=== PATIENT | female | born 1995 | race American Indian/Alaskan Native ===

== ENCOUNTER 2017-05-19 23:39 | Outpatient (CLI) | payer OTHER ==
[2017-05-20 00:16] LABS: Basophils % (Auto) 0.3 % (0.0-1.8); Hematocrit 36.4 % (30.3-42.9); Hemoglobin 12.1 gm/dl (10.1-14.3); Mean Corpuscular HGB Conc 33 % (30-34); Mean Corpuscular Hemoglobin 29 pg (28-32); Mean Corpuscular Volume 88 fl (79-97); Platelet Count 246 K/mm3 (140-440); Red Blood Count 4.15 M/mm3 (3.65-5.03); Red Cell Distribution Width 13.3 % (13.2-15.2); White Blood Count 8.1 K/mm3 (4.5-11.0)
[2017-05-20 00:34] LABS: Anion Gap 21 mmol/L; Blood Urea Nitrogen 9 mg/dL (7-17); Carbon Dioxide 20 mmol/L (22-30); Chloride 99.9 mmol/L (98-107); Glucose 93 mg/dL (65-100); Potassium 4.2 mmol/L (3.6-5.0); Sodium 137 mmol/L (137-145)
[2017-05-20 04:39] LABS: Bilirubin,Urine NEG (Negative); Blood,Urine NEG (Negative); Ketones,Urine NEG (Negative); Leukocyte Esterase,Urine LG (Negative); Mucus,Urine FEW /HPF; Nitrite,Urine NEG (Negative); Protein,Urine <15 mg/dL mg/dL (Negative); Urobilinogen,Urine < 2.0 mg/dL (<2.0)
--- NOTE | 2017-05-20 09:04 | Emergency Department Report ---
ED Chest Pain HPI - General Chief Complaint: Chest Pain Stated Complaint: 21WEEKS SPOTTING, CHEST PAIN Time Seen by Provider: 05/20/17 08:55 Source: patient Mode of arrival: Ambulatory Limitations: No Limitations - History of Present Illness Initial Comments: 19 weeks female 21 weeks presented today with chest pain and epigastric pain started 3 days ago aching in nature and comes and goes. Patient denied any shortness of breath no nausea no vomiting no fever no cough. MD Complaint: chest pain -: Gradual, days(s) (3 days) Onset: during rest Severity scale (0 -10): 5 - Related Data Allergies Allergy/AdvReac Type Severity Reaction Status Date / Time No Known Allergies Allergy Unverified 05/19/17 23:48 Heart Score - HEART Score History: Slightly suspicious EKG: Non-specific Age: < 45 Risk factors: No known risk factors Troponin: < normal limit HEART Score: 1 - Critical Actions Critical Actions: 0-3 pts:0.9-1.7%risk of adverse cardiac event.Candidate for discharge ED Review of Systems ROS: Stated complaint: 21WEEKS SPOTTING, CHEST PAIN Other details as noted in HPI Comment: All other systems reviewed and negative Constitutional: denies: chills, fever Respiratory: denies: cough, orthopnea, SOB with exertion Cardiovascular: chest pain. denies: palpitations, dyspnea on exertion Gastrointestinal: denies: abdominal pain, nausea, vomiting Genitourinary: other (vaginal spotting for the last 2-3 days) Skin: denies: lesions Neurological: denies: headache, weakness ED Past Medical Hx - Past Medical History Previous Medical History?: No - Surgical History Past Surgical History?: No - Social History Smoking Status: Never Smoker Substance Use Type: None ED Physical Exam - General Limitations: No Limitations General appearance: alert, in no apparent distress - Head Head exam: Present: normocephalic - ENT ENT exam: Present: normal exam - Neck Neck exam: Present: normal inspection - Respiratory Respiratory exam: Present: normal lung sounds bilaterally. Absent: respiratory distress, wheezes, rales, rhonchi, chest wall tenderness, accessory muscle use, decreased breath sounds, prolonged expiratory - Cardiovascular Cardiovascular Exam: Present: regular rate, normal rhythm, normal heart sounds - GI/Abdominal GI/Abdominal exam: Present: soft, normal bowel sounds, other (gravid uterus). Absent: distended, tenderness, guarding, rebound, rigid, mass, bruit - Back Exam Back exam: Absent: CVA tenderness (R), CVA tenderness (L) - Neurological Exam Neurological exam: Present: alert, oriented X3, CN II-XII intact - Skin Skin exam: Present: warm, normal color ED Course Vital Signs 05/19/17 05/20/17 05/20/17 23:48 02:55 07:12 Temperature 98.3 F 98.4 F Pulse Rate 85 92 H 80 Respiratory 18 18 18 Rate Blood Pressure 99/54 106/69 Blood Pressure 95/64 [Left] O2 Sat by Pulse 100 100 100 Oximetry 05/20/17 07:19 Temperature Pulse Rate Respiratory 16 Rate Blood Pressure Blood Pressure [Left] O2 Sat by Pulse Oximetry - Reevaluation(s) Reevaluation #1: 05/20/17 09:[address] Guerra from OB. She requested ultrasound pelvic and accepted the patient to be transferred to the labor and delivery for further evaluation. Reevaluation #2: 05/20/17 10:29 PATIENT WILL BE DISCHARGED TO GO TO LABOR AND DELIVERY. ED Medical Decision Making - Lab Data Result diagrams: 05/19/17 23:57 05/19/17 23:57 Critical care attestation.: If time is entered above; I have spent that time in minutes in the direct care of this critically ill patient, excluding procedure time. ED Disposition Clinical Impression: Chest pain, Vaginal bleeding before 22 weeks gestation Disposition: DC-01 TO HOME OR SELFCARE Is pt being admited?: No Condition: Stable Instructions: Chest Pain (ED) Additional Instructions: REPORT TO L&D TO SEE DR GUERRA. Referrals: PRIMARY CARE, [Primary Care Provider] - 3-5 Days
--- NOTE | 2017-05-20 10:26 | Ultrasound Report ---
Gestation: Single Position: Cephalic Placenta: Anterior Placental Grade: 0 Heart Rate: 160 BPM Cervical length: 3.2 cm (Normal > 3 cm) NEUROANATOMY VISUALIZED: Normal Choroid Plexus Cisterna Magnum Cerebellum Lateral Ventricle ANATOMY VISUALIZED: Normal Stomach Kidneys Bladder Diaphragm 4 Chamber Heart Heart 3 Vessel Cord Abd. Cord Insert SPINE VISUALIZED: Normal Longitudinal Transverse AP Limited spine due to position. BPD: 4.9 cm = 20 w 6 d HC: 18.5 cm = 20 w 6 d AC: 15.2 cm = 20 w 3 d FL: 3.5 cm = 21 w 0 d HC/AC Ratio: 1.2 Cephalic Index: 80.2 Estimated Weight: 371 grams LMP: 12/18/16 Clinical age = 21 w 6 d EDC: 09/24/17 US Gest. Age = 20 w 6 d EDC: 10/01/17
[2017-05-20] MEDS ORDERED: LACTATED RINGERS 500 ML IV ONE (11:15)
[2017-05-20 11:31] VITALS: BP 100/56
== END 2017-05-20 13:53 | disposition home or self-care (01) ==
LOC: TRG 23:39 → ED 23:39 → TRG 05-20 10:50 → ED 05-20 10:50 → TRG 05-20 11:10
PROVIDERS: ATTEND Obstetrics & Gynecology
DX: O26.852 Spotting complicating pregnancy, second trimester (principal); O26.892 Other specified pregnancy related conditions, second trimester; R07.9 Chest pain, unspecified; R10.13 Epigastric pain; R94.31 Abnormal electrocardiogram [ECG] [EKG]; Z3A.21 21 weeks gestation of pregnancy
CPT/HCPCS: 36415; 76805; 80048; 81001; 81025; 84484; 84702; 85025; 87591; 93005; 93010

== ENCOUNTER 2017-09-13 20:12 | Inpatient (IN) | payer OTHER ==
[2017-09-13] MEDS ORDERED: SUBLIMAZE IV PRN (22:21)
[2017-09-13] MEDS ORDERED: STADOL IV PRN (22:21)
[2017-09-13] MEDS ORDERED: CERVIDIL VG ONE (22:21)
[2017-09-13 22:38] LABS: Hematocrit 34.6 % (30.3-42.9); Hemoglobin 11.9 gm/dl (10.1-14.3); Mean Corpuscular HGB Conc 34 % (30-34); Mean Corpuscular Hemoglobin 31 pg (28-32); Mean Corpuscular Volume 89 fl (79-97); Red Blood Count 3.89 M/mm3 (3.65-5.03); Red Cell Distribution Width 13.6 % (13.2-15.2)
[2017-09-13 22:41] LABS: Platelet Count 148 K/mm3 (140-440)
[2017-09-13] MEDS ORDERED: LACTATED RINGERS 1,000 ML IV SCH (23:00)
--- NOTE | 2017-09-14 08:01 | History and Physical Report ---
History of Present Illness Date of examination: 09/14/17 Date of admission: 09/13/17 20:12 History of present illness: 21 yo LMP EDC 09/24/17 @ 38.4 weeks gestation arrived to L&D for induction of labor secondary to IUGR 3%. Received cervidil last night. Removed this am and was found to be 3cm. Second trimester entry into care at 14 weeks. course complicated by vaginal spotting with +CT, treated and negative DENNY. Comang't by [facility]. Last EFM 5-3oz on 09/08/17. She is GBS positive. Past History Past Medical History: no pertinent history Past Surgical History: no surgical history [employer] History: chlamydia Family/Genetic History: cancer Social history: no significant social history, single, lives with family ( mother and siblings) - Obstetrical History Expected Date of Delivery: 09/24/17 Actual Gestation: 38 Week(s) 4 Day(s) : 2 Para: 0 Hx # Term Pregnancies: 0 Induced : 0 Number of Living Children: 0 Medications and Allergies Allergies Allergy/AdvReac Type Severity Reaction Status Date / Time No Known Allergies Allergy Unverified 05/19/17 23:48 Active Meds: Active Medications Butorphanol Tartrate (Stadol) 2 mg IV Q2H PRN PRN Reason: Pain , Severe (7-10) Fentanyl (Sublimaze) 100 mcg IV Q2H PRN PRN Reason: Labor Pain Lactated Ringer's (Lactated Ringers) 1,000 mls @ 125 mls/hr IV DIRECT FE Review of Systems All systems: negative Genitourinary: normal appearance, leakage of fluid (AROM-clear), contractions - Vital Signs Vital signs: Vital Signs Pulse BP 97 H 100/55 09/13/17 20:45 09/13/17 20:45 Temp Pulse Resp BP Pulse Ox 98.4 F 93 H 28 H 124/75 09/14/17 07:25 09/14/17 07:30 09/14/17 07:25 09/14/17 07:30 - Physical Exam Breasts: Positive: deferred Genitourinary (Female): Positive: normal external genitalia, normal perenium. Negative: perineal/vulvar lesions Vagina: Positive: normal moisture - Obstetrical FHR: category 1, category 2 Uterine Contraction Monitor Mode: External Cervical Dilatation: 3 Cervical Effacement Percentage: 60 station: -2 Uterine Contraction Pattern: Regular Uterine Tone Measurement Phase: Resting Uterine Contraction Intensity: Strong/Firm Results Result Diagrams: 09/13/17 21:55 All other labs normal. Assessment and Plan A: IUP at 38.4 week gestation Latent Labor +GBS Induction for IUGR P: Ampicillin Pitocin prn
[2017-09-14] MEDS ORDERED: BRETHINE SUB-Q PRN (08:30)
[2017-09-14] MEDS ORDERED: ePHEDrine SULFATE IV PRN ×2 (08:30→12:45)
[2017-09-14] MEDS ORDERED: XYLOCAINE 2% INFILTRATI NR (08:30)
[2017-09-14] MEDS ORDERED: BRETHINE IVP PRN (08:30)
[2017-09-14] MEDS ORDERED: PITOCin/NS 30 UNIT/500ML 30 UNITS/500 ML BAG IV SCH ×2 (09:00)
[2017-09-14] MEDS ORDERED: PITOCin/NS 20 UNIT/1000ML DRIP 20 UNITS/1,000 ML BAG IV SCH (09:00)
[2017-09-14] MEDS ORDERED: POLYCILLIN/NS 2 GM/100 ML 2 GM/100 ML BAG IV ONE (09:00)
[2017-09-14] MEDS ORDERED: MINERAL OIL PO PRN (09:00)
[2017-09-14] MEDS: LACTATED RINGERS 1,000 ML IV SCH ×2 (09:10→11:58)
[2017-09-14] MEDS ORDERED: NARCAN 2 MG/2 ML IV PRN (11:52)
--- NOTE | 2017-09-14 11:53 | Anesthesia Consultation ---
Anesthesia Consult and Med Hx Date of service: 09/14/17 - Airway Anesthetic Teeth Evaluation: Good ROM Head & Neck: Adequate Mental/Hyoid Distance: Adequate Mallampati Class: Class II Intubation Access Assessment: Probably Good - Pulmonary Exam CTA: Yes - Cardiac Exam Cardiac Exam: RRR - Pre-Operative Health Status ASA Pre-Surgery Classification: ASA2 Proposed Anesthetic Plan: Epidural, Spinal - Pulmonary Hx Asthma: No COPD: No Hx Pneumonia: No - Cardiovascular System Hx Hypertension: No - Central Nervous System Hx Seizures: No Hx Psychiatric Problems: No - Endocrine Hx Renal Disease: No Hx End Stage Renal Disease: No Hx Hypothyroidism: No Hx Hyperthyroidism: No - Hematic Hx Anemia: No Hx Sickle Cell Disease: No - Additional Comments Anesthesia Medical History Comments: +IUP
[2017-09-14] MEDS ORDERED: fentaNYL-BUPIV 2 MCG/ML-0.125% 200 MCG/100 ML BAG EPIDURAL SCH (13:00)
[2017-09-14] MEDS ORDERED: POLYCILLIN/NS 1 GM/50 ML 1 GM/50 ML BAG IV SCH (13:00)
--- NOTE | 2017-09-14 13:19 | Event Note ---
Date: 09/14/17 S: No c/o O: FHT:Category 1 UC: 2-5 SVE: C/C/+2 A: Second stage labor GBS positive: Adequate treatment P: Active Donnie't
--- NOTE | 2017-09-14 13:19 | Procedure Note ---
OB Delivery Note - Delivery Date of Delivery: 09/14/17 (5-11oz male @ 1349) Surgeon: EUNICE BOYLE Estimated blood loss: 100cc - Vaginal Delivery presentation: vertex Delivery position: OA Intrapartum events: none Delivery induction: cervidil Delivery augmentation: rupture of membranes Delivery monitor: external FHT, external uterine Route of delivery: Delivery placenta: spontaneous (Sent to pathology) Delivery cord: 3 umbilical vessels Delivery laceration: 1st degree (vaginal, approximated with 3.[address], one stitch) Anesthesia: epidural - A at 1 minute: 9 at 5 minutes: 9 Infant Gender: Male (Pushed x 2 contractions for viable male in OA position. Spont. lusty cry, placed skin to skin. Apgars 9/9. Cord blood collected. Spont. placenta. Pitocin infusing. Bleeding scant. FF 3 below U, ML. +GBS, adequate treatment.)
[2017-09-14] MEDS ORDERED: TYLENOL PO PRN (14:04)
[2017-09-14] MEDS ORDERED: PHENERGAN PO PRN (14:04)
[2017-09-14] MEDS ORDERED: DULCOLAX PR PRN (14:04)
[2017-09-14] MEDS ORDERED: PHENERGAN PR PRN (14:04)
[2017-09-14] MEDS ORDERED: TUCKS PAD TP PRN (14:04)
[2017-09-14] MEDS ORDERED: BENADRYL PO PRN (14:04)
[2017-09-14] MEDS ORDERED: LANSINOH TP PRN (14:04)
[2017-09-14] MEDS ORDERED: SODIUM CHLORIDE FLUSH SYRINGE 10 ML IV SCH (15:00)
[2017-09-14] MEDS: MOTRIN PO SCH ×2 (16:00→23:58)
[2017-09-14] MEDS: NORCO 5/325 PO PRN (18:40)
[2017-09-15 02:01] LABS: Hematocrit 35.2 % (30.3-42.9); Hemoglobin 11.8 gm/dl (10.1-14.3)
[2017-09-15] MEDS: MOTRIN PO SCH ×5 (05:50→23:09)
[2017-09-15] MEDS ORDERED: BOOSTRIX IM ONE (06:00)
[2017-09-15] MEDS: NORCO 5/325 PO PRN (08:00)
[2017-09-15] MEDS ORDERED: FIORICET PO PRN (08:30)
--- NOTE | 2017-09-15 08:31 | Progress Note ---
Assessment and Plan A: PPD#1 s/p at term P: Routine care. Anticipate Discharge tomorrow. Subjective - Subjective Date of service: 09/15/17 Principal diagnosis: s/p at term Interval history: No overnight events. Patient reports: appetite normal, voiding normally, pain well controlled, ambulating normally, no nauseated : doing well Objective - Vital Signs Latest vital signs: Vital Signs Temp Pulse Resp BP BP Pulse Ox 09/15/17 05:50 20 09/15/17 00:30 98.0 F 85 18 105/68 09/14/17 23:58 18 09/14/17 20:55 98.3 F 82 18 102/61 09/14/17 17:45 98.1 F 96 H 18 116/64 09/14/17 14:34 107 H 100 09/14/17 14:29 105 H 99 09/14/17 14:24 116 H 100 09/14/17 14:22 117 H 116/72 09/14/17 14:19 104 H 100 09/14/17 14:14 117 H 100 09/14/17 14:07 111 H 124/73 09/14/17 13:52 90 106/63 09/14/17 13:47 100 H 100/66 09/14/17 13:30 98 H 100 09/14/17 13:25 94 H 100 09/14/17 13:20 106 H 100 09/14/17 13:15 113 H 100 09/14/17 13:10 98 H 100 09/14/17 13:05 88 100 09/14/17 13:00 105 H 100 09/14/17 12:53 103 H 117/79 09/14/17 12:16 93 H 110/61 09/14/17 12:10 86 107/65 09/14/17 11:49 101 H 99/50 09/14/17 10:48 90 92/49 09/14/17 09:48 122 H 135/75 09/14/17 09:15 113 H 134/72 Intake and Output 09/14/17 09/15/17 09/15/17 22:59 06:59 14:59 Intake Total 360 360 Output Total 900 400 Balance -540 -40 Intake: Oral 360 360 Output: Urine 900 400 Void 900 400 Other: Total, Intake Amount 240 120 Total, Output Amount 900 400 # Voids Void 1 - Exam Breasts: Present: deferred Cardiovascular: Present: Regular rate Lungs: Present: Clear to auscultation Abdomen: Present: soft Uterus: Present: fundal height below umbilicus Extremities: Present: normal
--- NOTE | 2017-09-15 08:32 | Discharge Summary ---
Providers - Providers Date of Admission: 09/13/17 20:12 Date of discharge: 09/16/17 Attending physician: JASON MALDONADO MD Primary care physician: JASON MALDONADO MD Hospitalization Reason for admission: induction of labor Delivery: Procedure details: Please see delivery note. Episiotomy: none Laceration: 1st degree Other procedures: none complications: none Discharge diagnosis: IUP at term delivered baby: male Hospital course: Pt underwent induction of labor and had a spontaneous vaginal delivery which she tolerated well. She had an unremarkable course and met discharge criteria on PPD#2. She will follow up in 4 wks with Chelsea Musa. Condition at discharge: Stable Disposition: - TO HOME OR SELFCARE - Discharge Diagnoses (1) Term of male Status: Acute (2) IUGR (intrauterine growth restriction) Status: Acute Plan - Discharge Medications Prescriptions: Ferrous Sulfate [Feosol 325 MG tab] 325 mg PO BID #60 tablet HYDROcodone/APAP 5-325 [Morgan 5/325] 1 each PO Q6HR PRN #20 tablet PRN Reason: Pain Ibuprofen [Motrin] 800 mg PO Q8HR PRN #30 tablet PRN Reason: Pain - Provider Discharge Summary Activity: routine, no sex for 6 weeks, no heavy lifting 4 weeks, no strenuous exercise Diet: routine Instructions: routine Additional instructions: [] Smoking cessation referral if applicable(refer to patient education folder for contact #) [] Refer to [facility]'s [facility] Booklet Call your doctor immediately for: * Fever > 100.5 * Heavy vaginal bleeding ( >1 pad per hour) * Severe persistent headache * Shortness of breath * Reddened, hot, painful area to leg or breast * Drainage or odor from incision. * Keep incision clean and dry at all times and follow doctor's instructions regarding bathing/showering PLEASE SCHEDULE YOUR SON'S CIRCUMCISION BEFORE HE IS ONE MONTH OLD - Follow up plan Follow up: CHELSEA MUSA CNM [Advanced Practice Nurse] - 10/12/17 (please call for exam )
[2017-09-15] MEDS: PRENATAL VITAMIN PO SCH (12:29)
[2017-09-15] MEDS ORDERED: M-M-R II VACCINE SUB-Q ONE (14:04)
[2017-09-16] MEDS: MOTRIN PO SCH ×2 (06:15→11:44)
[2017-09-16] MEDS: PRENATAL VITAMIN PO SCH (10:29)
[2017-09-16] MEDS: NORCO 5/325 PO PRN (11:49)
[2017-09-16 19:28] VITALS: BP 107/65
== END 2017-09-16 18:10 | disposition home or self-care (01) | DRG 775 ==
LOC: LD 20:12 → OB 09-14 17:17
PROVIDERS: ADMIT Obstetrics & Gynecology; ATTEND Obstetrics & Gynecology
PROC: 10E0XZZ Delivery of Products of Conception, External Approach (ICD-10-PCS; principal; 2017-09-14)
PROC: 0HQ9XZZ Repair Perineum Skin, External Approach (ICD-10-PCS; 2017-09-14)
PROC: 3E0P7VZ Introduction of Hormone into Female Reproductive, Via Natural or Artificial Opening (ICD-10-PCS; 2017-09-14)
PROC: 3E0R3BZ Introduction of Anesthetic Agent into Spinal Canal, Percutaneous Approach (ICD-10-PCS; 2017-09-14)
PROC: 00HU33Z Insertion of Infusion Device into Spinal Canal, Percutaneous Approach (ICD-10-PCS; 2017-09-14)
PROC: 10907ZC Drainage of Amniotic Fluid, Therapeutic from Products of Conception, Via Natural or Artificial Opening (ICD-10-PCS; 2017-09-14)
PROC: 3E0234Z Introduction of Serum, Toxoid and Vaccine into Muscle, Percutaneous Approach (ICD-10-PCS; 2017-09-15)
DX: O36.5930 Maternal care for other known or suspected poor fetal growth, third trimester, not applicable or unspecified (principal); O70.0 First degree perineal laceration during delivery; O99.824 Streptococcus B carrier state complicating childbirth; O26.893 Other specified pregnancy related conditions, third trimester; Z3A.38 38 weeks gestation of pregnancy; Z37.0 Single live birth; Z80.9 Family history of malignant neoplasm, unspecified; Z23 Encounter for immunization
CPT/HCPCS: 36415; 59200; 85014; 85018; 85027; 86592; 86850; 86900; 86901; 99211; A6250; G0463; J0290; J0595; J2590; J7120

== ENCOUNTER 2017-09-20 11:57 | Day surgery (SDC) | payer OTHER ==
[2017-09-20 12:34] VITALS: BP 120/78
--- NOTE | 2017-09-20 14:18 | Progress Note ---
Subjective Date of service: 09/20/17 Interval history: Ms Milligan had on 09/17/17 with combined spinal epidural analgesia. There was a documented wet tap and patient presents today with positional headache. After being presented with options of therapy the patient opted for epidural blood patch. She was placed in a sitting position and her back was prepped and draped. A 18 gauge epidural needle was inserted at L3-4, the area documented as site of the prior epidural. Good loss of resistance was obtained and 20 cc autologous blood was injected without problem. The patients headache was improved after the injection but not completely gone. She was discharged home with instructions of bed rest and to call anesthesia if headache was still present in the [facility]. Objective - Constitutional Vitals: Vital Signs - 12hr 09/20/17 12:10 Temperature 97.2 F L Pulse Rate 72 Respiratory 16 Rate Blood Pressure 120/78
== END 2017-09-20 14:48 | disposition home or self-care (01) ==
LOC: OR 11:57
PROVIDERS: ATTEND Anesthesiology
DX: O89.4 Spinal and epidural anesthesia-induced headache during the puerperium (principal)
CPT/HCPCS: 62273